=== PATIENT | female | born 1985 | race Caucasian/White ===

== ENCOUNTER → 2016-07-23 | Outpatient (CLI) | payer BC ==
[2016-07-23 12:25] LABS: Basophils % (A) 0 %; CH 30.2; CHCM 32.4; Eosinophils # (A) 0.1 k/uL (0-0.7); Eosinophils % (A) 1 %; HCT 43.1 % (34.0-46.0); HDW 2.22; HGB 13.6 gm/dL (11.4-16.0); Luc # (Auto) 0.13; Luc % (Auto) 1; Lymphocytes # (A) 2.7 k/uL (1.0-4.8); Lymphocytes % (A) 29 %; MCH 29.6 pg (25.0-35.0); MCHC 31.6 g/dL (31.0-37.0); MCV 93.8 fL (80.0-100.0); Mean Platelet Volume 8.3; Monocytes # (A) 0.5 k/uL (0-1.0); Monocytes % (A) 5 %; Neutrophils # (A) 5.9 k/uL (1.3-7.7); Neutrophils % (A) 64 %; RBC 4.59 m/uL (3.80-5.40); RDW 13.4 % (11.5-15.5); WBC 9.2 k/uL (3.8-10.6); WBC (Perox) 9.45
== END | disposition home or self-care (01) ==
LOC: LABPAT 12:07
PROVIDERS: ATTEND Obstetrics & Gynecology
DX: Z01.812 Encounter for preprocedural laboratory examination (principal)
CPT/HCPCS: 85025

== ENCOUNTER 2016-07-27 07:05 | Day surgery (SDC) | payer BC ==
[2016-07-25 14:23] VITALS: BMI 22.4
--- NOTE | 2016-07-27 06:57 | P.HPOB ---
History of Present Illness H&P Date: 07/27/16 Chief Complaint: retained IUD 30 year old presents for D&C hysteroscopy and removal of IUD. IUD was attempted to be removed in the office but was unsuccessful. Review of Systems All systems: negative Constitutional: Denies chills, Denies fever Eyes: denies blurred vision, denies pain Ears, nose, mouth and throat: Denies headache, Denies sore throat Cardiovascular: Denies chest pain, Denies shortness of breath Respiratory: Denies cough Gastrointestinal: Denies abdominal pain, Denies diarrhea, Denies nausea, Denies vomiting Genitourinary: Denies dysuria, Denies hematuria Musculoskeletal: Denies myalgias Integumentary: Denies pruritus, Denies rash Neurological: Denies numbness, Denies weakness Psychiatric: Denies anxiety, Denies depression Endocrine: Denies fatigue, Denies weight change Past Medical History Past Medical History: Thyroid Disorder Additional Past Medical History / Comment(s): MIGRAINE HEADACHE, HYPERTHYROIDISM , History of Any Multi-Drug Resistant Organisms: None Reported Past Surgical History: No Surgical Hx Reported Past Anesthesia/Blood Transfusion Reactions: No Reported Reaction Additional Past Anesthesia/Blood Transfusion Reaction / Comment(s): EPIDURAL WITH DELIVERIES WITH NO PROBLEMS Past Psychological History: No Psychological Hx Reported Smoking Status: Current every day smoker Past Alcohol Use History: Rare Additional Past Alcohol Use History / Comment(s): STARTED SMOKING AT AGE 19 SMOKES 1/2PPD Past Drug Use History: None Reported - Past Family History Mother Family Medical History: No Reported History Medications and Allergies Home Medications Medication Instructions Recorded Confirmed Type No Known Home Medications [No 07/25/16 07/25/16 History Known Home Medications] Allergies Allergy/AdvReac Type Severity Reaction Status Date / Time No Known Allergies Allergy Verified 07/25/16 13:52 Exam Osteopathic Statement: *. No significant issues noted on an osteopathic structural exam other than those noted in the History and Physical/Consult. HEart: RRR Lungs: CTAB Abdomen: soft, nontender Extremeties: neg blas's Assessment and Plan (1) IUD (intrauterine device) in place Status: Acute Plan: 1. D&C hysteroscopy and removal of IUD.
[~2016-07-27 07:05] MED LIST: DEXAMETHASONE SOD PHOSPHATE 10 MG/ML 1 ML VIAL IV ONE; HYDROmorphone 1 MG/ML 1 ML SYRINGE IVP PRN; LACTATED RINGERS 1,000 ML IV SCH; MIDAZOLAM 2 MG/2 ML VIAL IV PRN; ONDANSETRON 4 MG/2 ML VIAL IVP ONE; Pre Op ABX Message 1 EACH MISC MISCELLANE ONE; SCOPOLAMINE 1.5MG/72HR PATCH TRANSDERM ONE
[2016-07-27] MEDS ORDERED: LACTATED RINGERS 1,000 ML IV ONE (07:21)
[2016-07-27] MEDS ORDERED: LIDOCAINE 1% 20 ML VIAL (10MG/ML) FOR IV START INTRADERMA ONE (07:22)
[2016-07-27] MEDS ORDERED: PROPOFOL 10 MG/ML 20 ML VIAL IV ONE (07:55)
[2016-07-27] MEDS ORDERED: MIDAZOLAM 2 MG/2 ML VIAL ONE (07:55)
[2016-07-27] MEDS ORDERED: LIDOCAINE 1% INJ 10MG/ML (20 ML MDV) ONE (07:55)
[2016-07-27] MEDS ORDERED: fentaNYL (PF) 50 MCG/ML 2 ML AMP ONE (07:55)
[2016-07-27] MEDS ORDERED: KETOROLAC 30 MG/ML 1 ML VIAL ONE (07:55)
[2016-07-27 08:30] VITALS: TEMP 97.4
--- NOTE | 2016-07-27 08:34 | P.OP ---
Date of Procedure: 07/27/16 Preoperative Diagnosis: 1. Retained IUD Postoperative Diagnosis: 1. Retained IUD Procedure(s) Performed: D&C, hysteroscopy, removal of IUD Anesthesia: MAC Surgeon: Felipa Villela Estimated Blood Loss (ml): 5 Pathology: other (Endometrial curettings) Condition: stable Disposition: PACU Description of Procedure: Patient is taken the operating room where general anesthesia was obtained without difficulty. She is prepped and draped in normal sterile fashion dorsal lithotomy position, legs placed in candycane stirrups. Bladder drained of all urine. Weighted speculum placed in the vagina and the anterior lip the cervix was grasped with a single-tooth tenaculum. The uterus sounded to 9 cm. The Huggins dilators were used to dilate the cervix to allow the hysteroscope to pass. Hysteroscopy performed and IUD visualized immediately. The polyp forceps were used to remove the IUD. Sharp curet was gently used to obtain endometrial curettings. All instruments removed from the vagina. Patient tolerated procedure well, sponge and instrument counts were correct 2. And she was taken to recovery room in stable condition.
[2016-07-27 08:42] VITALS: RESP 16
[2016-07-27] MEDS ORDERED: IBUPROFEN 200 MG TAB PO ONE (09:21)
[2016-07-27 09:23] VITALS: BP 107/58; PULSE 56
== END 2016-07-27 09:56 | disposition home or self-care (01) ==
LOC: OR 07:05
PROVIDERS: ATTEND Obstetrics & Gynecology
DX: T83.89XA Other specified complication of genitourinary prosthetic devices, implants and grafts, initial encounter (principal); F17.200 Nicotine dependence, unspecified, uncomplicated
CPT/HCPCS: 58558; 58579; 81025; 88305; J2250; J1100; J2405; J2001; J3010; J1885; J2704

== ENCOUNTER 2022-03-15 11:10 | Outpatient (CLI) | payer BC, OTHER ==
[2022-03-15 11:58] LABS: Basophils # (A) 0.1 k/uL (0-0.2); Basophils % (A) 0 %; Eosinophils # (A) 0.1 k/uL (0-0.7); Eosinophils % (A) 1 %; HCT 32.1 % (34.0-46.0); HGB 9.9 gm/dL (11.4-16.0); Hypochromasia Marked; Lymphocytes # (A) 2.3 k/uL (1.0-4.8); Lymphocytes % (A) 18 %; MCH 26.9 pg (25.0-35.0); MCHC 30.8 g/dL (31.0-37.0); MCV 87.3 fL (80.0-100.0); Mean Platelet Volume 7.7; Monocytes # (A) 0.7 k/uL (0-1.0); Monocytes % (A) 5 %; Neutrophils # (A) 9.6 k/uL (1.3-7.7); Neutrophils % (A) 74 %; Platelet Count 548 k/uL (150-450); Poikilocytosis Slight; RBC 3.67 m/uL (3.80-5.40); RDW 14.6 % (11.5-15.5)
[2022-03-15 12:02] LABS: Amorphous Sediment,Urine Rare /hpf; Appearance,Urine Cloudy (Clear); Bacteria,Urine Occasional /hpf; Bilirubin,Urine Negative (Negative); Blood,Urine Negative (Negative); Color,Urine Light Yellow; Glucose,Urine (UA) Trace (Negative); Ketones,Urine Negative (Negative); Leukocyte Esterase,Urine Negative (Negative); Nitrite,Urine Negative (Negative); PH, Urine 7.5 (5.0-8.0); Protein,Urine Negative (Negative); RBC,Urine <1 /hpf (0-5); Specific Gravity,Urine 1.007 (1.001-1.035); Squamous Epithelial Cell,Urine 9 /hpf (0-4); Urobilinogen,Urine <2.0 mg/dL (<2.0); WBC,Urine 2 /hpf (0-5)
[2022-03-15 12:03] LABS: Creatinine,Urine Random 36.2 mg/dL; Protein/Creatinine Ratio,Urine 0.47
[2022-03-15 12:08] LABS: INR 0.9 (<1.2); Partial Thromboplastin Time 24.6 sec (22.0-30.0); Prothrombin Time 9.6 sec (9.0-12.0)
[2022-03-15 12:16] LABS: ALT 11 U/L (4-34); AST 20 U/L (14-36); African American GFR (CKD) >90 (>60 ml/min/1.73 sqM); Blood Urea Nitrogen 2 mg/dL (7-17); LDH 343 U/L (313-618); Non-African American GFR(CKD) >90 (>60 ml/min/1.73 sqM); Uric Acid 3.2 mg/dL (3.7-7.4)
[2022-03-15 14:02] VITALS: BP 145/81; PULSE 100; RESP 17; TEMP 97.9
--- NOTE | 2022-03-15 15:25 | P.MSEPDOC ---
Presenting Problems - Arrival Data Date of Arrival on Unit: 03/15/22 Time of Arrival on Unit: 13:10 Mode of Transport: Ambulatory - Complaint OB-Reason for Admission/Chief Complaint: PIH Comment: pt sent over from the office by Dr. Villela with written orders for PIH workup due to elevated bp's in the office Medical History - Gestational Age Gestational Age by JUAN (wks/days): 38 Weeks and 0 Days Review of Systems - Review of Systems Constitutional: No problems Breast: No problems ENT: No problems Cardiovascular: No problems Respiratory: No problems Gastrointestinal: No problems Genitourinary: No problems Musculoskeletal: No problems Neurological: No problems Skin: No problems Vital Signs - Temperature Temperature: 97.9 F - Pulse Right Brachial Pulse Rate: 100 Pulse Assessment Method: Automatic Cuff - Respirations Respiratory Rate: 17 Oxygen Delivery Method: Room Air - Blood Pressure Right Arm Blood Pressure: 145/81 Blood Pressure Mean: 102 Blood Pressure Source: Automatic Cuff Medical Screen Scoring - Assessment - Baby A Baseline FHR: 145 Heart Rate - NICHD Category: Category I (Normal) NST: Reactive Physician Notification - Physician Notified Physician Notified Date: 03/15/22 Physician Notified Time: 12:40 Physician: Felipa Villela Order Received: Yes - Notification Comment Comment: all PIH labs and reactive NST reported to Dr. Hameed, orders received to discharge pt home, she will schedule pt to be induced next Saturday Maternal Triage Index - Stat/Priority 1 Stat Priority 1: No - Urgent/Priority 2 Urgent Priority 2: No - Prompt/Priority 3 Prompt Priority 3: No - Non-Urgent/Priority 4 Non-Urgent Priority 4: No - Scheduled/Requesting Priority 5 Scheduled/Requesting Priority 5: Yes Criteria Met for Priority 5: pt sent over from the office by Dr. Villela with written orders for PIH workup due to elevated bp's in the office, pt 38 weeks ga Disposition - Disposition OB Disposition: Triage Discharge Date: 03/15/22 Discharge Time: 12:50 I agree with the RN Medical Screening Exam: Yes Case reviewed; plan agreed upon as documented in EMR&OBIX.: Yes Diagnosis: GESTATIONAL HTN W/O SIGNIFICANT PROTEINURIA, THIRD TRIMESTER
== END 2022-03-15 12:50 | disposition home or self-care (01) ==
LOC: FBPOP 11:10
PROVIDERS: ATTEND Obstetrics & Gynecology
DX: O13.3 Gestational [pregnancy-induced] hypertension without significant proteinuria, third trimester (principal); Z3A.38 38 weeks gestation of pregnancy
CPT/HCPCS: 36415; 59025; 81001; 82565; 82570; 83615; 84156; 84450; 84460; 84520; 84550; 85025; 85610; 85730

== ENCOUNTER 2022-03-23 06:06 | Inpatient (IN) | payer BC, OTHER ==
[2022-03-23] MEDS ORDERED: TERBUTALINE 1 MG/ML VIAL SQ PRN (06:12)
[2022-03-23] MEDS ORDERED: METHYLERGONOVINE 0.2 MG/ML 1 ML AMP IM PRN (06:12)
[2022-03-23] MEDS ORDERED: LIDOCAINE 0.5% (PF) 5 MG/ML (50 ML SDV) SQ PRN (06:12)
[2022-03-23] MEDS ORDERED: OXYTOCIN 10 UNIT/ML 1 ML VIAL IM PRN (06:12)
[2022-03-23] MEDS ORDERED: CARBOPROST TROMETHAMINE 250 MCG/ML 1 ML AMP IM PRN (06:12)
[2022-03-23] MEDS: LACTATED RINGERS 1,000 ML IV SCH ×2 (06:44→13:12)
[2022-03-23] MEDS ORDERED: OXYTOCIN 30 UNITS/500 ML NS 30 UNIT in SALINE 1 500ML.BAG IV SCH ×2 (06:45→22:45)
[2022-03-23 07:17] LABS: Basophils % (A) 0 %; Eosinophils # (A) 0.2 k/uL (0-0.7); Eosinophils % (A) 1 %; HCT 33.8 % (34.0-46.0); HGB 10.7 gm/dL (11.4-16.0); Hypochromasia Marked; Lymphocytes # (A) 3.4 k/uL (1.0-4.8); Lymphocytes % (A) 22 %; MCH 27.4 pg (25.0-35.0); MCHC 31.6 g/dL (31.0-37.0); MCV 86.9 fL (80.0-100.0); Mean Platelet Volume 7.7; Monocytes # (A) 0.7 k/uL (0-1.0); Monocytes % (A) 5 %; Neutrophils # (A) 10.7 k/uL (1.3-7.7); Neutrophils % (A) 70 %; Platelet Count 563 k/uL (150-450); Poikilocytosis Slight; RBC 3.89 m/uL (3.80-5.40); RDW 15.1 % (11.5-15.5); WBC 15.3 k/uL (3.8-10.6)
--- NOTE | 2022-03-23 07:52 | P.HPOB ---
History of Present Illness H&P Date: 03/23/22 Chief Complaint: induction of labor 36-year-old presents at 39 weeks and 1 day for induction of labor. Her cervix is 2-3 cm dilated, 60% effaced, and -2 station. She is dinora irregularly. heart tones are 135 with moderate variability and reactive. Review of Systems All systems: negative Constitutional: Denies chills, Denies fever Eyes: denies blurred vision, denies pain Ears, nose, mouth and throat: Denies headache, Denies sore throat Cardiovascular: Denies chest pain, Denies shortness of breath Respiratory: Denies cough Gastrointestinal: Denies abdominal pain, Denies diarrhea, Denies nausea, Denies vomiting Genitourinary: Denies dysuria, Denies hematuria Musculoskeletal: Denies myalgias Integumentary: Denies pruritus, Denies rash Neurological: Denies numbness, Denies weakness Psychiatric: Denies anxiety, Denies depression Endocrine: Denies fatigue, Denies weight change Past Medical History Past Medical History: GERD/Reflux, Thyroid Disorder History of Any Multi-Drug Resistant Organisms: None Reported Past Anesthesia/Blood Transfusion Reactions: No Reported Reaction Past Psychological History: No Psychological Hx Reported Smoking Status: Current every day smoker - Past Family History Mother Family Medical History: No Reported History Medications and Allergies Home Medications Medication Instructions Recorded Confirmed Type Omeprazole 40 mg PO DAILY 03/15/22 03/23/22 History Vit No.179/Iron/Folic 1 each PO DAILY 03/15/22 03/23/22 History [ Tablet] Allergies Allergy/AdvReac Type Severity Reaction Status Date / Time No Known Allergies Allergy Verified 03/23/22 06:12 Exam Osteopathic Statement: *. No significant issues noted on an osteopathic structural exam other than those noted in the History and Physical/Consult. Vital Signs Temp Pulse Resp BP Pulse Ox 03/23/22 06:17 98 F 118 H 16 136/88 98 Intake and Output 03/22/22 03/23/22 03/23/22 22:59 06:59 14:59 Other: Weight 83.007 kg Heart: Regular rate and rhythm Lungs: Clear to auscultation bilaterally Abdomen: Soft, nontender Extremities: Negative Homans sign Results Result Diagrams: 03/23/22 06:37 Abnormal Lab Results - Last 24 Hours (Table) 03/23/22 Range/Units 06:37 WBC 15.3 H (3.8-10.6) k/uL Hgb 10.7 L (11.4-16.0) gm/dL Hct 33.8 L (34.0-46.0) % Plt Count 563 H (150-450) k/uL Neutrophils # 10.7 H (1.3-7.7) k/uL Assessment and Plan (1) Elective induction of labor planned Current Visit: Yes Status: Acute Code(s): SSS2423 - SNOMED Code(s): 820766507 Plan: 1. Induction of labor with amniotomy and Pitocin 2. Anticipate normal vaginal delivery
[2022-03-23] MEDS ORDERED: ROPIVACAINE 5MG/ML 20ML VIAL ONE (19:24)
[2022-03-23] MEDS ORDERED: SODIUM CHLORIDE 0.9% 100 ML BAG ONE (19:24)
[2022-03-23] MEDS ORDERED: fentaNYL (PF) 50 MCG/ML 5 ML AMP ONE (19:24)
[2022-03-23] MEDS ORDERED: diphenhydrAMINE 50 MG/ML 1 ML VIAL IVP PRN ×2 (22:43)
[2022-03-23] MEDS ORDERED: ZOLPIDEM 5 MG TAB PO PRN (22:43)
[2022-03-23] MEDS ORDERED: LANOLIN CREAM 5 GM TUBE TOPICAL PRN (22:43)
[2022-03-23] MEDS ORDERED: ACETAMINOPHEN TAB 325 MG TAB PO PRN (22:43)
[2022-03-23] MEDS ORDERED: HYDROCORTISONE 2.5% RECTAL CREAM 30 GM TUBE RECTAL PRN (22:43)
[2022-03-23] MEDS ORDERED: diphenhydrAMINE 50 MG CAP PO PRN (22:43)
[2022-03-23] MEDS ORDERED: diphenhydrAMINE 25 MG CAP PO PRN (22:43)
[2022-03-23] MEDS ORDERED: BENZOCAINE/MENTHOL SPRAY 1 GM/SPRAY AEROSOL TOPICAL PRN (22:43)
[2022-03-23] MEDS ORDERED: SIMETHICONE 80 MG CHEWABLE PO PRN (22:43)
[2022-03-23] MEDS: IBUPROFEN 600 MG TAB PO PRN (23:26)
[2022-03-24 00:04] VITALS: RESP 16
[2022-03-24] MEDS: LACTATED RINGERS 1,000 ML IV SCH (00:43)
[2022-03-24] MEDS: IBUPROFEN 600 MG TAB PO PRN ×3 (05:33→19:43)
[2022-03-24] MEDS: SENNOSIDES-DOCUSATE SODIUM 1 EACH TAB PO SCH ×3 (08:05→19:44)
[2022-03-24 08:07] LABS: Basophils # (A) 0.1 k/uL (0-0.2); Basophils % (A) 0 %; Eosinophils % (A) 0 %; HCT 30.8 % (34.0-46.0); HGB 9.5 gm/dL (11.4-16.0); Hypochromasia Marked; Lymphocytes # (A) 2.2 k/uL (1.0-4.8); Lymphocytes % (A) 7 %; MCH 26.7 pg (25.0-35.0); MCHC 30.8 g/dL (31.0-37.0); MCV 86.7 fL (80.0-100.0); Monocytes # (A) 1.4 k/uL (0-1.0); Monocytes % (A) 5 %; Neutrophils # (A) 26.3 k/uL (1.3-7.7); Neutrophils % (A) 86 %; Platelet Count 515 k/uL (150-450); Poikilocytosis Slight; RBC 3.56 m/uL (3.80-5.40); RDW 15.3 % (11.5-15.5); WBC 30.4 k/uL (3.8-10.6)
--- NOTE | 2022-03-24 10:22 | P.DS ---
Providers Date of admission: 03/23/22 06:06 Expected date of discharge: 03/24/22 Attending physician: Felipa Villela Primary care physician: Stated None - Discharge Diagnosis(es) (1) Elective induction of labor planned Current Visit: Yes Status: Resolved (2) Normal vaginal delivery Current Visit: Yes Status: Acute Hospital Course: Patient presented for induction of labor. She underwent a normal vaginal delivery. course was uncomplicated. She denies nausea, vomiting, ch est pain, shortness of breath or any calf pain. Patient will be discharged home day #1 in stable condition to follow-up with me in 6 weeks. Plan - Discharge Summary New Discharge Prescriptions: New Ibuprofen [Motrin] 600 mg PO Q6HR PRN #30 tab PRN Reason: Mild Pain (Scale 1 To 3) No Action Omeprazole 40 mg PO DAILY Vit No.179/Iron/Folic [ Tablet] 1 each PO DAILY Discharge Medication List Omeprazole 40 mg PO DAILY 03/15/22 [History] Vit No.179/Iron/Folic [ Tablet] 1 each PO DAILY 03/15/22 [History] Ibuprofen [Motrin] 600 mg PO Q6HR PRN #30 tab 03/24/22 [Rx] Follow up Appointment(s)/Referral(s): Felipa Villela DO [Doctor of Osteopathic Medicine] - 05/07/22 3:45 pm Discharge Disposition: HOME SELF-CARE
--- NOTE | 2022-03-24 10:35 | P.PROBDLV ---
Vaginal Delivery Note - . Vaginal Delivery Note: 36-year-old presents at 39 weeks and 1 day for induction of labor. Her cervix is 2-3 cm dilated, 60% effaced, and -2 station. She is dinora irregularly. heart tones are 135 with moderate variability and reactive. Pitocin was started and amniotomy performed at 7:21 AM, clear fluid noted. She progressed slowly throughout the day and when she was about 8 cm dilated at 5 PM she felt a strong urge to push and did try a few times. She was uncomfortable and did get an epidural so the baby could labor down. Her cervix was completely dilated at 2121. She pushed, delivered a viable female infant over intact perineum under epidural anesthesia at 2235. Head delivered OA, nuchal cord 2 easily reduced, anterior shoulder delivered gentle downward guidance, followed by posterior shoulder and rest of body. Nose and mouth bulb suctioned, cord clamped and cut, placed on mother's abdomen. Apgars 9, 9, weight 9 lbs. 5 oz. Placenta delivered spontaneously, intact with three-vessel cord at 2235. Vagina, cervix, perineum inspected. No lacerations noted. Estimated blood loss 100 mL. Mother and baby in stable condition.
[2022-03-24 23:12] VITALS: BP 130/81; PULSE 112; TEMP 98
== END 2022-03-24 23:15 | disposition home or self-care (01) | DRG 807 ==
LOC: 4FBP 06:06
PROVIDERS: ADMIT Obstetrics & Gynecology; ATTEND Obstetrics & Gynecology
PROC: 10E0XZZ Delivery of Products of Conception, External Approach (ICD-10-PCS; principal; 2022-03-23)
PROC: 10907ZC Drainage of Amniotic Fluid, Therapeutic from Products of Conception, Via Natural or Artificial Opening (ICD-10-PCS; 2022-03-23)
PROC: 3E033VJ Introduction of Other Hormone into Peripheral Vein, Percutaneous Approach (ICD-10-PCS; 2022-03-23)
PROC: 4A0HXCZ Measurement of Products of Conception, Cardiac Rate, External Approach (ICD-10-PCS; 2022-03-23)
DX: O69.81X0 Labor and delivery complicated by cord around neck, without compression, not applicable or unspecified (principal); Z37.0 Single live birth; O99.334 Smoking (tobacco) complicating childbirth; F17.210 Nicotine dependence, cigarettes, uncomplicated; K21.9 Gastro-esophageal reflux disease without esophagitis; O99.62 Diseases of the digestive system complicating childbirth; E07.9 Disorder of thyroid, unspecified; O99.284 Endocrine, nutritional and metabolic diseases complicating childbirth; Z3A.39 39 weeks gestation of pregnancy
CPT/HCPCS: 85025; 86850; 86900; 86901

== ENCOUNTER → 2022-05-28 | Outpatient (CLI) | payer OTHER ==
--- NOTE | 2022-05-28 16:26 | US ---
EXAMINATION TYPE: US transvaginal DATE OF EXAM: 05/28/2022 COMPARISON: Pelvic ultrasound 05/29/2016 CLINICAL HISTORY: N93.8 OTHER SPECIFIED ABNORMAL UTERINE AND VAGINAL. 8 weeks , bleeding wa s heavy but just stopped, back pain, no fever TECHNIQUE: TA. Transabdominal sonographic images of the pelvis were acquired Date of LMP: 12 months ago EXAM MEASUREMENTS: Uterus: 9.5 x 4.2 x 4.1 cm Endometrial Stripe: 1.6 cm Right Ovary: 2.3 x 1.6 x 1.6 cm Left Ovary: 1.3 x 1.7 x 1.9 cm 1. Uterus: Anteverted wnl 2. Endometrium: heterogeneous ranging from 1.4-1.6cm in thickness with echogenic foci within. No inc reased vascularity. 3. Right Ovary: wnl 4. Left Ovary: wnl 5. Bilateral Adnexa: wnl 6. Posterior cul-de-sac: wnl IMPRESSION: Prominent endometrium measuring up to 1.6 cm in thickness. No increased vascularity to definitively s uggest retained products of conception. Nonspecific echogenic foci demonstrated within the endometriu m. Findings may relate to endometrial hyperplasia versus normal postmenopausal endometrium versus oth er etiologies. Follow-up ultrasound in 6-12 weeks is recommended with correlation with beta hCG level s.
== END | disposition home or self-care (01) ==
LOC: RADUSWWP 15:45
PROVIDERS: ATTEND Obstetrics & Gynecology
DX: N93.8 Other specified abnormal uterine and vaginal bleeding (principal)
CPT/HCPCS: 76856

== ENCOUNTER 2023-09-11 14:10 | Emergency (ER) | payer OTHER ==
[2023-09-11 14:19] VITALS: RESP 18; TEMP 97.9
--- NOTE | 2023-09-11 14:21 | ED ---
Female Urogenital HPI - General Chief complaint: Vaginal Bleeding Stated complaint: 10 wks preg- vag bleeding Time Seen by Provider: 09/11/23 14:13 Source: patient, RN notes reviewed Mode of arrival: ambulatory Limitations: no limitations - History of Present Illness Initial comments: This is a 37-year-old female who presents to the emergency department for vaginal bleeding in . Patient is and approximately 10 weeks . States that yesterday she had light spotting and today she started to develop more persistent bleeding. She has minor pain in her back but denies any abdominal pain. Denies any nausea or vomiting. She used to follow with Dr. Villela, however because that office is closing she is having trouble getting an appointment. Denies any history of complications in prior pregnancies. MD Complaint: vaginal bleeding - Related Data Home Medications Medication Instructions Recorded Confirmed Omeprazole 40 mg PO DAILY 03/15/22 03/23/22 Vit No.179/Iron/Folic 1 each PO DAILY 03/15/22 03/23/22 [ Tablet] Previous Rx's Medication Instructions Recorded Ibuprofen [Motrin] 600 mg PO Q6HR PRN #30 tab 03/24/22 Allergies Allergy/AdvReac Type Severity Reaction Status Date / Time No Known Allergies Allergy Verified 09/11/23 14:13 Review of Systems ROS Statement: Those systems with pertinent positive or pertinent negative responses have been documented in the HPI. ROS Other: All systems not noted in ROS Statement are negative. Past Medical History Past Medical History: GERD/Reflux, Thyroid Disorder History of Any Multi-Drug Resistant Organisms: None Reported Past Surgical History: No Surgical Hx Reported Past Anesthesia/Blood Transfusion Reactions: No Reported Reaction Past Psychological History: No Psychological Hx Reported Smoking Status: Current every day smoker Past Alcohol Use History: None Reported Past Drug Use History: None Reported - Past Family History Mother Family Medical History: No Reported History General Exam Limitations: no limitations General appearance: alert, in no apparent distress Head exam: Present: atraumatic, normocephalic, normal inspection Respiratory exam: Present: normal lung sounds bilaterally. Absent: respiratory distress, wheezes, rales, rhonchi, stridor Cardiovascular Exam: Present: regular rate, normal rhythm, normal heart sounds. Absent: systolic murmur, diastolic murmur, rubs, gallop, clicks Neurological exam: Present: alert, oriented X3, CN II-XII intact Psychiatric exam: Present: normal affect, normal mood Skin exam: Present: warm, dry, intact, normal color. Absent: rash Course Vital Signs 09/11/23 09/11/23 14:11 17:38 Temperature 97.9 F Pulse Rate 99 81 Respiratory 18 18 Rate Blood Pressure 145/85 120/80 O2 Sat by Pulse 99 99 Oximetry Medical Decision Making - Medical Decision Making This is a 37 year old female who presents to the emergency department for vaginal bleeding in . Was pt. sent in by a medical professional or institution? @ -No Did you speak to anyone other than the patient for history? @ -No Did you review nursing and triage notes? @ -Yes, and I agree, it is accurate with regards to the patient's symptoms. Were old charts reviewed? @ -No Differential Diagnosis? @ -Differential Vaginal Bleeding: Spontaneous , threatened , molar , ectopic , incompetent cervix, placenta previa, uterine rupture, dysfunctional uterine bleeding, hemorrhage, uterine fibroids, malignancy, coagulopathy, PID, cervicitis, adenomyosis, vaginal trauma, this is not meant to be an all- inclusive list. EKG interpreted by me (3pts min.)? @ -Not obtained X-rays interpreted by me (1pt min.)? @ -Not obtained CT interpreted by me (1pt min.)? @ -Not obtained U/S interpreted by me (1pt. min.)? @ - US obtained. My interpretation identifies a gestational sac. What testing was considered but not performed? (CT, X-rays, U/S, labs)? Why? @ -None What meds were considered but not given? Why? @ -None Did you discuss the management of the patient with other professionals? @ -No Did you reconcile home meds? @ -No Was smoking cessation discussed for >3mins.? @ -No Was critical care preformed (if so, how long)? @ -No Were there social determinants of health that impacted care today? How? (Homelessness, low income, unemployed, alcoholism, drug addiction, tra nsportation, low edu. Level, literacy, decrease access to med. care, [facility], rehab)? @ -No Was there de-escalation of care discussed even if they declined? (Discuss DNR or withdrawal of care, Hospice)? @ -No What co-morbidities impacted this encounter? (DM, HTN, Smoking, COPD, CAD, Cancer, CVA, Hep., AIDS, mental health diagnosis, sleep apnea, morbid obesity)? @ - Was patient admitted / discharged? @ -Discharged. Lab work obtained and found to be unremarkable. HCG is 7922.1. Urinalysis is negative for signs of infection. Blood type is O+ and no RhoGAM is indicated. US obtained demonstrating an early gestational sac estimated at 5 weeks 5 days. Yolk sac is not identified. Blighted ovum is within the differential, as well as possible early . Subchorionic hematoma is also evident, which is likely the cause of the bleeding. Given the indeterminate US, she will need to have her hCG repeated in 48 hours. Lab slip provided to have this done. Also advised continuing to try and become established with an PHYSICIAN/ALLERGY/IMMUNOLOGY for ongoing obstetrics care. Patient discharged home in stable condition. Undiagnosed new problem with uncertain prognosis? @ -None Drug Therapy requiring intensive monitoring for toxicity (Heparin, Nitro, Insulin, Cardizem)? @ -None Were any procedures done? @ -None Diagnosis/symptom? @ -Vaginal bleeding in Acute, or Chronic, or Acute on Chronic? @ -Acute Uncomplicated (without systemic symptoms) or Complicated (systemic symptoms)? @ -Uncomplicated Side effects of treatment? @ -None Exacerbation, Progression, or Severe Exacerbation] @ -Not applicable Poses a threat to life or bodily function? @ -No Return precautions reviewed in depth, the patient is instructed to return to the emergency department with any new, worsening, or concerning symptoms. Patient verbalized understanding. This case was discussed in detail with the attending ED physician, Dr. Pink. Presentation, findings, and treatment plan discussed in detail as well. - Lab Data Result diagrams: 09/11/23 14:56 09/11/23 14:56 Lab Results 09/11/23 09/11/23 09/11/23 Range/Units 14:56 14:56 14:56 WBC 9.0 (3.8-10.6) k/uL RBC 4.59 (3.80-5.40) m/uL Hgb 13.4 (11.4-16.0) gm/dL Hct 41.4 (34.0-46.0) % MCV 90.2 (80.0-100.0) fL MCH 29.2 (25.0-35.0) pg MCHC 32.3 (31.0-37.0) g/dL RDW 13.7 (11.5-15.5) % Plt Count 371 (150-450) k/uL MPV 7.6 Neutrophils % 70 % Lymphocytes % 24 % Monocytes % 3 % Eosinophils % 1 % Basophils % 0 % Neutrophils # 6.3 (1.3-7.7) k/uL Lymphocytes # 2.2 (1.0-4.8) k/uL Monocytes # 0.3 (0-1.0) k/uL Eosinophils # 0.1 (0-0.7) k/uL Basophils # 0.0 (0-0.2) k/uL Sodium 139 (137-145) mmol/L Potassium 3.6 (3.5-5.1) mmol/L Chloride 106 (98-107) mmol/L Carbon Dioxide 25 (22-30) mmol/L Anion Gap 8 mmol/L BUN 8 (7-17) mg/dL Creatinine 0.53 (0.52-1.04) mg/dL Est GFR (CKD-EPI)AfAm >90 (>60 ml/min/1.73 sqM) Est GFR (CKD-EPI)NonAf >90 (>60 ml/min/1.73 sqM) Glucose 120 H (74-99) mg/dL Calcium 9.5 (8.4-10.2) mg/dL Total Bilirubin 0.4 (0.2-1.3) mg/dL AST 19 (14-36) U/L ALT 15 (4-34) U/L Alkaline Phosphatase 87 (38-126) U/L Total Protein 7.2 (6.3-8.2) g/dL Albumin 4.5 (3.5-5.0) g/dL HCG, Quant 7922.1 mIU/mL Urine Color Light Yellow Urine Appearance Clear (Clear) Urine pH 7.0 (5.0-8.0) Ur Specific [place] 1.005 (1.001-1.035) Urine Protein Trace H (Negative) Urine Glucose (UA) Negative (Negative) Urine Ketones Negative (Negative) Urine Blood Large H (Negative) Urine Nitrite Negative (Negative) Urine Bilirubin Negative (Negative) Urine Urobilinogen <2.0 (<2.0) mg/dL Ur Leukocyte Esterase Negative (Negative) Urine RBC 1 (0-5) /hpf Urine WBC 3 (0-5) /hpf Ur Squamous Epith Cells 2 (0-4) /hpf Urine Bacteria Rare H (None) /hpf Urine Mucus Rare H (None) /hpf Urine Yeast (Budding) Occasional H (None) /hpf Blood Type Blood Type Recheck Bld Type Recheck Status 09/11/23 Range/Units 14:56 WBC (3.8-10.6) k/uL RBC (3.80-5.40) m/uL Hgb (11.4-16.0) gm/dL Hct (34.0-46.0) % MCV (80.0-100.0) fL MCH (25.0-35.0) pg MCHC (31.0-37.0) g/dL RDW (11.5-15.5) % Plt Count (150-450) k/uL MPV Neutrophils % % Lymphocytes % % Monocytes % % Eosinophils % % Basophils % % Neutrophils # (1.3-7.7) k/uL Lymphocytes # (1.0-4.8) k/uL Monocytes # (0-1.0) k/uL Eosinophils # (0-0.7) k/uL Basophils # (0-0.2) k/uL Sodium (137-145) mmol/L Potassium (3.5-5.1) mmol/L Chloride (98-107) mmol/L Carbon Dioxide (22-30) mmol/L Anion Gap mmol/L BUN (7-17) mg/dL Creatinine (0.52-1.04) mg/dL Est GFR (CKD-EPI)AfAm (>60 ml/min/1.73 sqM) Est GFR (CKD-EPI)NonAf (>60 ml/min/1.73 sqM) Glucose (74-99) mg/dL Calcium (8.4-10.2) mg/dL Total Bilirubin (0.2-1.3) mg/dL AST (14-36) U/L ALT (4-34) U/L Alkaline Phosphatase (38-126) U/L Total Protein (6.3-8.2) g/dL Albumin (3.5-5.0) g/dL HCG, Quant mIU/mL Urine Color Urine Appearance (Clear) Urine pH (5.0-8.0) Ur Specific [place] (1.001-1.035) Urine Protein (Negative) Urine Glucose (UA) (Negative) Urine Ketones (Negative) Urine Blood (Negative) Urine Nitrite (Negative) Urine Bilirubin (Negative) Urine Urobilinogen (<2.0) mg/dL Ur Leukocyte Esterase (Negative) Urine RBC (0-5) /hpf Urine WBC (0-5) /hpf Ur Squamous Epith Cells (0-4) /hpf Urine Bacteria (None) /hpf Urine Mucus (None) /hpf Urine Yeast (Budding) (None) /hpf Blood Type O Positive Blood Type Recheck O Pos Bld Type Recheck Status [facility] ONLY - Radiology Data Radiology results: report reviewed, image reviewed Disposition Clinical Impression: Vaginal bleeding during Disposition: HOME SELF-CARE Additional Instructions: Return to the emergency department with any new, worsening, or concerning symptoms. Take the lab slip to have your blood work repeated in 48 hours, this Saturday. The ultrasound was inconclusive. A gestational sac was present, however they did not yet see a yolk sac. It may have been too early to see this. You may also have something called a blighted ovum. Continue trying to become establis hed with an PHYSICIAN/ALLERGY/IMMUNOLOGY for ongoing obstetrics care. You can also see if the [facility] clinic can repeat an ultrasound. Is patient prescribed a controlled substance at d/c from ED?: No Referrals: None,Stated [Primary Care Provider] - 1-2 days Felipa Villela DO [Doctor of Osteopathic Medicine] - 1-2 days Time of Disposition: 16:32
[2023-09-11 15:13] LABS: Basophils % (A) 0 %; Eosinophils # (A) 0.1 k/uL (0-0.7); Eosinophils % (A) 1 %; HCT 41.4 % (34.0-46.0); HGB 13.4 gm/dL (11.4-16.0); Lymphocytes # (A) 2.2 k/uL (1.0-4.8); Lymphocytes % (A) 24 %; MCH 29.2 pg (25.0-35.0); MCHC 32.3 g/dL (31.0-37.0); MCV 90.2 fL (80.0-100.0); Mean Platelet Volume 7.6; Monocytes # (A) 0.3 k/uL (0-1.0); Monocytes % (A) 3 %; Neutrophils # (A) 6.3 k/uL (1.3-7.7); Neutrophils % (A) 70 %; Platelet Count 371 k/uL (150-450); RBC 4.59 m/uL (3.80-5.40); RDW 13.7 % (11.5-15.5)
[2023-09-11 15:28] LABS: ALT 15 U/L (4-34); AST 19 U/L (14-36); African American GFR (CKD) >90 (>60 ml/min/1.73 sqM); Albumin 4.5 g/dL (3.5-5.0); Alkaline Phosphatase 87 U/L (38-126); Anion Gap 8 mmol/L; Blood Urea Nitrogen 8 mg/dL (7-17); Calcium 9.5 mg/dL (8.4-10.2); Carbon Dioxide 25 mmol/L (22-30); Chloride 106 mmol/L (98-107); Glucose 120 mg/dL (74-99); Non-African American GFR(CKD) >90 (>60 ml/min/1.73 sqM); Potassium 3.6 mmol/L (3.5-5.1); Sodium 139 mmol/L (137-145); Total Bilirubin 0.4 mg/dL (0.2-1.3); Total Protein 7.2 g/dL (6.3-8.2)
[2023-09-11 15:34] LABS: Appearance,Urine Clear (Clear); Bacteria,Urine Rare /hpf; Bilirubin,Urine Negative (Negative); Blood,Urine Large (Negative); Budding Yeast,Urine Occasional /hpf; Color,Urine Light Yellow; Glucose,Urine (UA) Negative (Negative); Ketones,Urine Negative (Negative); Leukocyte Esterase,Urine Negative (Negative); Mucus,Urine Rare /hpf; Nitrite,Urine Negative (Negative); Protein,Urine Trace (Negative); RBC,Urine 1 /hpf (0-5); Specific Gravity,Urine 1.005 (1.001-1.035); Squamous Epithelial Cell,Urine 2 /hpf (0-4); Urobilinogen,Urine <2.0 mg/dL (<2.0); WBC,Urine 3 /hpf (0-5)
[2023-09-11 15:43] LABS: HCG,Quantitative Serum 7922.1 mIU/mL
--- NOTE | 2023-09-11 15:43 | US ---
EXAMINATION TYPE: Transabdominal DATE OF EXAM: 09/11/2023 3:10 PM COMPARISON: NONE CLINICAL INDICATION: Female, 37 years old with history of Vaginal bleeding in ; Spotting sta rted yesterday, heavier today EXAM PERFORMED: Transabdominal (TA) EXAM MEASUREMENTS: GESTATIONAL AGE / DATING Physician Established: Not yet established ( weeks/ days) EDC: Dates by LMP: 06/05/2023 (14 weeks/0 days) EDC: 03/11/2024 Dates by First Scan: No previous this is first scan ( weeks/ days) EDC: Dates by Current Scan for: (5 weeks/5 days) EDC: 05/08/2024 MATERNAL ANATOMY Uterus: 10.1 x 5.2 x 6.6 cm Right Ovary: 3.6 x 3.0 x 3.4 cm Left Ovary: 3.1 x 1.5 x 1.3 cm Post CDS / Adnexa: WNL Presence of free fluid: No Presence of corpus luteal cyst: No Presence of subchorionic bleed: Multiple, largest = 1.6 x 1.4 x 1.1 GESTATION / SURVEY CRL: Not seen ( weeks/ days) MSD: 1.48 (5 weeks/5 days) Yolk Sac (normal less than 6mm): Not seen Heart Rate: NA bpm Rhythm: NA IUP: ? Blighted Ovum Nuchal Translucency 10-14wks (normal less than 3mm): NA Age Appropriate Anatomy Cord Insertion: NA Limbs: NA Calvarium: NA Date of LMP: 06/05/2023 Beta HcG (if available): Not available at this time IMPRESSION: 1. Early gestational sac estimated at 5 weeks 5 days gestation. The crown-rump length is not identifi ed. Yolk sac is not identified. Blighted ovary is within the differential. Early , less like ly, remains within the differential. Follow-up and correlation with beta hCG is recommended.
[2023-09-11 17:55] VITALS: BP 120/80; PULSE 81
== END 2023-09-11 17:40 | disposition home or self-care (01) ==
LOC: EC 14:10
DX: O46.91 Antepartum hemorrhage, unspecified, first trimester (principal); O99.611 Diseases of the digestive system complicating pregnancy, first trimester; K21.9 Gastro-esophageal reflux disease without esophagitis; O99.331 Smoking (tobacco) complicating pregnancy, first trimester; F17.200 Nicotine dependence, unspecified, uncomplicated; Z3A.10 10 weeks gestation of pregnancy
CPT/HCPCS: 36415; 76801; 80053; 81001; 84702; 85025; 86900; 86901; 99284

== ENCOUNTER 2023-09-13 00:04 | Emergency (ER) | payer OTHER ==
--- NOTE | 2023-09-13 00:26 | ED ---
General Adult HPI - General Stated complaint: transfer Time Seen by Provider: 09/13/23 00:25 - History of Present Illness Initial comments: 37 year old female presenting to the ED with a CC of vaginal bleeding and abdominal pain. Was seen here yesterday and had an US performed showing early gestational sac at 5 weeks 5 days gestation. Yolk sac not identified. States today went to [facility] because of increasing vaginal bleeding and abdominal pain. Transferred here for further evaluation. Follows with Dr. Villela. No chest pain shortness of breath. No fever or chills. No other complaints at this time. - Related Data Home Medications Medication Instructions Recorded Confirmed Omeprazole 40 mg PO DAILY 03/15/22 03/23/22 Vit No.179/Iron/Folic 1 each PO DAILY 03/15/22 03/23/22 [ Tablet] Previous Rx's Medication Instructions Recorded Ibuprofen [Motrin] 600 mg PO Q6HR PRN #30 tab 03/24/22 Allergies Allergy/AdvReac Type Severity Reaction Status Date / Time No Known Allergies Allergy Verified 09/13/23 00:26 Review of Systems ROS Statement: Those systems with pertinent positive or pertinent negative responses have been documented in the HPI. ROS Other: All systems not noted in ROS Statement are negative. Past Medical History Past Medical History: GERD/Reflux, Thyroid Disorder History of Any Multi-Drug Resistant Organisms: None Reported Past Surgical History: No Surgical Hx Reported Past Anesthesia/Blood Transfusion Reactions: No Reported Reaction Past Psychological History: No Psychological Hx Reported Smoking Status: Current every day smoker Past Alcohol Use History: None Reported Past Drug Use History: None Reported - Past Family History Mother Family Medical History: No Reported History General Exam General appearance: alert, in no apparent distress Eye exam: Present: normal appearance Neck exam: Present: normal inspection Respiratory exam: Present: normal lung sounds bilaterally Cardiovascular Exam: Present: regular rate, normal rhythm GI/Abdominal exam: Present: soft (Diffuse abdominal TTP. ), other (Diffuse abdominal tenderness to palpation.) External exam: Present: other (Exam chaperoned by Marquise CORNELIUS. Cervical os obscured by blood. There does appear to be some minimal active bleeding. Minimal blood in the vaginal vault.) Extremities exam: Present: normal inspection Neurological exam: Present: alert, oriented X3 Skin exam: Present: warm, dry Course Vital Signs 03/01/24 03/01/24 00:26 01:52 Temperature 98.3 F Pulse Rate 104 H 93 Respiratory 16 15 Rate Blood Pressure 102/72 115/69 O2 Sat by Pulse 100 96 Oximetry Medical Decision Making - Medical Decision Making Was pt. sent in by a medical professional or institution (, [facility], BUREAU CHIEF, urgent care, hospital, or half-way...) When possible be specific @ -[facility] Did you speak to anyone other than the patient for history (EMS, parent, family, police, friend...)? What history was obtained from this source @ -No Did you review nursing and triage notes (agree or disagree)? Why? @ -I reviewed and agree with nursing and triage notes Were old charts reviewed (outside hosp., previous admission, EMS record, old EKG, old radiological studies, urgent care reports/EKG's, half-way records)? Report findings @ -Yes, please see HPI and MDM. Differential Diagnosis (chest pain, altered mental status, abdominal pain women, abdominal pain men, vaginal bleeding, weakness, fever, dyspnea, syncope, headache, dizziness, GI bleed, back pain, seizure, CVA, palpatations, mental health, musculoskeletal)? @ -Differential Vaginal Bleeding: Spontaneous , threatened , molar , ectopic , bloody show, incompetent cervix, abruptioplacenta, placenta previa, uterine rupture, dysfunctional uterine bleeding, hemorrhage, uterine fibroids, this is not meant to be an all-inclusive list. EKG interpreted by me (3pts min.). @ -None X-rays interpreted by me (1pt min.). @ -None done CT interpreted by me (1pt min.). @ -None done U/S interpreted by me (1pt. min.). @ -None done What testing was considered but not performed or refused? (CT, X-rays, U/S, labs )? Why? @ -None What meds were considered but not given or refused? Why? @ -None Did you discuss the management of the patient with other professionals (professionals i.e. , [facility], BUREAU CHIEF, lab, RT, psych nurse, social work therapist, increment manager, teacher, armed custom protection officer, outpatient case manager)? Give summary @ -Case discussed with Dr. Villela who advises close follow-up in her office tomorrow. Was smoking cessation discussed for >3mins.? @ -No Was critical care preformed (if so, how long)? @ -No Were there social determinants of health that impacted care today? How? (Homelessness, low income, unemployed, alcoholism, drug addiction, transportation, low edu. Level, literacy, decrease access to med. care, fdc, rehab)? @ -No Was there de-escalation of care discussed even if they declined (Discuss DNR or withdrawal of care, Hospice)? DNR status @ -No What co-morbidities impacted this encounter? (DM, HTN, Smoking, COPD, CAD, Cancer, CVA, ARF, Chemo, Hep., AIDS, mental health diagnosis, sleep apnea, morbid obesity)? @ -None Was patient admitted / discharged? Hospital course, mention meds given and route, prescriptions, significant lab abnormalities, going to OR and other pertinent info. @ -Discharge 37-year-old female presenting to the ED with a chief complaint of vaginal bleeding. Initially seen here 2 days ago with ultrasound concerning for possible miscarriage. She then presented to [facility] secondary to increasing abdominal pain and vaginal bleeding. At time of my evaluation bleeding has largely resolved. Laboratory studies reviewed. CBC does show elevated white blood cell count at 14. Hemoglobin at 11.4. chemistry panel largely unremarkable. hCG quant 2 days ago 7922 down to 3519 today. Laboratory studies and exam consistent with miscarriage. At this time patient hemodynamically stable. Patient discharged home to follow-up with Dr. Villela later today. Discussed strict return precautions with patient who verbalized agreement. Undiagnosed new problem with uncertain prognosis? @ -No Drug Therapy requiring intensive monitoring for toxicity (Heparin, Nitro, Insulin, Cardizem)? @ -No Were any procedures done? @ -No Diagnosis/symptom? @ -Miscarriage Acute, or Chronic, or Acute on Chronic? @ -Acute Uncomplicated (without systemic symptoms) or Complicated (systemic symptoms)? @ -Complicated Side effects of treatment? @ -No Exacerbation, Progression, or Severe Exacerbation? @ -No Poses a threat to life or bodily function? How? (Chest pain, [place], [place], pneumonia, PE, COPD, DKA, ARF, appy, cholecystitis, CVA, Diverticulitis, Homicidal, Suicidal, threat to staff... and all critical care pts) @ -Unlikely - Lab Data Result diagrams: 09/13/23 00:47 09/13/23 00:47 Lab Results 09/13/23 09/13/23 Range/Units 00:47 00:47 WBC 14.0 H (3.8-10.6) k/uL RBC 3.83 (3.80-5.40) m/uL Hgb 11.4 (11.4-16.0) gm/dL Hct 34.2 (34.0-46.0) % MCV 89.4 (80.0-100.0) fL MCH 29.9 (25.0-35.0) pg MCHC 33.4 (31.0-37.0) g/dL RDW 13.8 (11.5-15.5) % Plt Count 375 (150-450) k/uL MPV 7.7 Neutrophils % 83 % Lymphocytes % 13 % Monocytes % 3 % Eosinophils % 1 % Basophils % 0 % Neutrophils # 11.6 H (1.3-7.7) k/uL Lymphocytes # 1.8 (1.0-4.8) k/uL Monocytes # 0.4 (0-1.0) k/uL Eosinophils # 0.1 (0-0.7) k/uL Basophils # 0.0 (0-0.2) k/uL Sodium 136 L (137-145) mmol/L Potassium 3.9 (3.5-5.1) mmol/L Chloride 110 H (98-107) mmol/L Carbon Dioxide 18 L (22-30) mmol/L Anion Gap 8 mmol/L BUN 9 (7-17) mg/dL Creatinine 0.47 L (0.52-1.04) mg/dL Est GFR (CKD-EPI)AfAm >90 (>60 ml/min/1.73 sqM) Est GFR (CKD-EPI)NonAf >90 (>60 ml/min/1.73 sqM) Glucose 116 H (74-99) mg/dL Calcium 8.5 (8.4-10.2) mg/dL Total Bilirubin 0.5 (0.2-1.3) mg/dL AST 15 (14-36) U/L ALT 13 (4-34) U/L Alkaline Phosphatase 76 (38-126) U/L Total Protein 5.7 L (6.3-8.2) g/dL Albumin 3.7 (3.5-5.0) g/dL HCG, Quant 3519.1 mIU/mL Disposition Clinical Impression: Spontaneous Disposition: HOME SELF-CARE Condition: Good Instructions (If sedation given, give patient instructions): Miscarriage (ED) Additional Instructions: Please return to the Emergency Department if symptoms worsen or any other concerns. Please follow-up with Dr. Villela later today. Is patient prescribed a controlled substance at d/c from ED?: No Referrals: None,Stated [Primary Care Provider] - 1-2 days Time of Disposition: 03:25
[2023-09-13 01:06] LABS: Basophils % (A) 0 %; Eosinophils # (A) 0.1 k/uL (0-0.7); Eosinophils % (A) 1 %; HCT 34.2 % (34.0-46.0); HGB 11.4 gm/dL (11.4-16.0); Lymphocytes # (A) 1.8 k/uL (1.0-4.8); Lymphocytes % (A) 13 %; MCH 29.9 pg (25.0-35.0); MCHC 33.4 g/dL (31.0-37.0); MCV 89.4 fL (80.0-100.0); Mean Platelet Volume 7.7; Monocytes # (A) 0.4 k/uL (0-1.0); Monocytes % (A) 3 %; Neutrophils # (A) 11.6 k/uL (1.3-7.7); Neutrophils % (A) 83 %; Platelet Count 375 k/uL (150-450); RBC 3.83 m/uL (3.80-5.40); RDW 13.8 % (11.5-15.5)
[2023-09-13 01:30] LABS: ALT 13 U/L (4-34); AST 15 U/L (14-36); African American GFR (CKD) >90 (>60 ml/min/1.73 sqM); Albumin 3.7 g/dL (3.5-5.0); Alkaline Phosphatase 76 U/L (38-126); Anion Gap 8 mmol/L; Blood Urea Nitrogen 9 mg/dL (7-17); Calcium 8.5 mg/dL (8.4-10.2); Carbon Dioxide 18 mmol/L (22-30); Chloride 110 mmol/L (98-107); Glucose 116 mg/dL (74-99); Non-African American GFR(CKD) >90 (>60 ml/min/1.73 sqM); Potassium 3.9 mmol/L (3.5-5.1); Sodium 136 mmol/L (137-145); Total Bilirubin 0.5 mg/dL (0.2-1.3); Total Protein 5.7 g/dL (6.3-8.2)
[2023-09-13 01:47] LABS: HCG,Quantitative Serum 3519.1 mIU/mL
[2023-09-13] MEDS: SODIUM CHLORIDE 0.9% 1,000 ML IV STA (02:22)
[2023-09-13] MEDS: MORPHINE SULFATE 4 MG/ML SYRINGE IVP STA (04:05)
[2023-09-13 04:29] VITALS: BP 110/74; PULSE 81; RESP 12; TEMP 97.6
== END 2023-09-13 04:16 | disposition home or self-care (01) ==
LOC: EC 00:04
DX: O03.9 Complete or unspecified spontaneous abortion without complication (principal); O99.611 Diseases of the digestive system complicating pregnancy, first trimester; K21.9 Gastro-esophageal reflux disease without esophagitis; O99.331 Smoking (tobacco) complicating pregnancy, first trimester; F17.200 Nicotine dependence, unspecified, uncomplicated; Z79.899 Other long term (current) drug therapy
CPT/HCPCS: 36415; 86900; 86901; 80053; 85025; 86850; 84702; 99285; 96374; 96361; J2270

== ENCOUNTER → 2023-09-19 | Outpatient (CLI) | payer OTHER ==
[2023-09-20 02:07] LABS: HGB 10.3 g/dL (12.0-15.0); MCHC 31.2 g/dL (32.0-37.0); Mean Platelet Volume 9.7 FL (9.5-12.2); NRBC Per 100 WBC 0 X 10*3/uL (0.00-0.01); Platelet Count 515 X 10*3/uL (140-440); RBC 3.55 X 10*6/uL (4.10-5.20); RDW 14.3 % (11.5-14.5); WBC 9.01 X 10*3/uL (4.50-10.00)
== END | disposition home or self-care (01) ==
LOC: LABWHC1 16:10
PROVIDERS: ATTEND Obstetrics & Gynecology
DX: O03.4 Incomplete spontaneous abortion without complication (principal); Z3A.00 Weeks of gestation of pregnancy not specified
CPT/HCPCS: 36415; 84702; 85027

== ENCOUNTER 2024-08-11 12:01 | Outpatient (CLI) | payer OTHER ==
[2024-08-11 13:01] LABS: Basophils # (A) 0.1 k/uL (0-0.2); Basophils % (A) 0 %; Eosinophils # (A) 0.1 k/uL (0-0.7); Eosinophils % (A) 1 %; HCT 33.9 % (34.0-46.0); HGB 10.9 gm/dL (11.4-16.0); Lymphocytes # (A) 1.7 k/uL (1.0-4.8); Lymphocytes % (A) 13 %; MCH 29.6 pg (25.0-35.0); MCHC 32.1 g/dL (31.0-37.0); MCV 92.5 fL (80.0-100.0); Mean Platelet Volume 8.3; Monocytes # (A) 0.6 k/uL (0-1.0); Monocytes % (A) 4 %; Neutrophils # (A) 10.2 k/uL (1.3-7.7); Neutrophils % (A) 79 %; Platelet Count 417 k/uL (150-450); RBC 3.67 m/uL (3.80-5.40); RDW 14.8 % (11.5-15.5); WBC 12.8 k/uL (3.8-10.6)
[2024-08-11 13:17] LABS: INR 0.9 (<1.2); Prothrombin Time 10.1 sec (10.0-12.5)
[2024-08-11 13:37] LABS: Amorphous Sediment,Urine Few /hpf; Appearance,Urine Turbid (Clear); Bacteria,Urine Rare /hpf; Bilirubin,Urine Negative (Negative); Blood,Urine Negative (Negative); Color,Urine Yellow; Glucose,Urine (UA) 4+ (Negative); Ketones,Urine Negative (Negative); Leukocyte Esterase,Urine Negative (Negative); Mucus,Urine Rare /hpf; Nitrite,Urine Negative (Negative); PH, Urine 7.5 (5.0-8.0); Protein,Urine Negative (Negative); Specific Gravity,Urine 1.014 (1.001-1.035); Squamous Epithelial Cell,Urine 16 /hpf (0-4); Urobilinogen,Urine <2.0 mg/dL (<2.0); WBC,Urine 3 /hpf (0-5)
[2024-08-11 13:48] LABS: Creatinine,Urine Random 76.3 mg/dL; Protein/Creatinine Ratio,Urine 0.21
[2024-08-11 13:49] LABS: ALT 15 U/L (4-34); AST 16 U/L (14-36); African American GFR (CKD) >90 (>60 ml/min/1.73 sqM); Blood Urea Nitrogen 6 mg/dL (7-17); LDH 130 U/L (120-246); Non-African American GFR(CKD) >90 (>60 ml/min/1.73 sqM); Uric Acid 2.4 mg/dL (3.7-7.4)
[2024-08-11 13:57] LABS: Glucose,Whole Blood 91 mg/dL (70-110)
== END 2024-08-11 14:15 | disposition home or self-care (01) ==
LOC: FBPOP 12:01
PROVIDERS: ATTEND Obstetrics & Gynecology
DX: O13.9 Gestational [pregnancy-induced] hypertension without significant proteinuria, unspecified trimester (principal); O14.90 Unspecified pre-eclampsia, unspecified trimester; O99.333 Smoking (tobacco) complicating pregnancy, third trimester; Z3A.39 39 weeks gestation of pregnancy; F17.210 Nicotine dependence, cigarettes, uncomplicated
CPT/HCPCS: 36415; 59025; 81001; 82565; 82570; 83615; 84156; 84450; 84460; 84520; 84550; 85025; 85384; 85610; 85730

== ENCOUNTER 2024-10-20 06:00 | Inpatient (IN) | payer OTHER ==
[2024-10-20] MEDS ORDERED: OXYTOCIN 10 UNIT/ML 1 ML VIAL IM PRN (06:26)
[2024-10-20] MEDS ORDERED: miSOPROStoL 200 MCG TAB PO PRN (06:26)
[2024-10-20] MEDS ORDERED: CARBOPROST TROMETHAMINE 250 MCG/ML 1 ML AMP IM PRN (06:26)
[2024-10-20] MEDS ORDERED: METHYLERGONOVINE 0.2 MG/ML 1 ML AMP IM PRN (06:26)
[2024-10-20] MEDS ORDERED: LIDOCAINE 0.5% (PF) 5 MG/ML (50 ML SDV) SQ PRN (06:26)
[2024-10-20] MEDS ORDERED: TERBUTALINE 1 MG/ML VIAL SQ PRN (06:26)
[2024-10-20] MEDS ORDERED: miSOPROStoL 200 MCG TAB RECTAL PRN (06:26)
[2024-10-20] MEDS ORDERED: TRANEXAMIC 1,000 MG/100ML-NACL 1,000 MG in EMPTY BAG 1 BAG IV PRN (06:26)
[2024-10-20] MEDS: LACTATED RINGERS 1,000 ML IV SCH (06:30)
[2024-10-20 06:32] LABS: Glucose,Whole Blood 136 mg/dL (70-110)
[2024-10-20 06:48] LABS: Basophils # (A) 0.04 10*3/uL (0.00-0.10); Basophils % (A) 0.3 %; Eosinophils # (A) 0.25 10*3/uL (0.04-0.35); Eosinophils % (A) 1.7 %; HCT 34.8 % (37.2-46.3); Lymphocytes # (A) 3.22 10*3/uL (0.90-5.00); Lymphocytes % (A) 21.5 %; MCH 30.8 pg (27.0-32.0); MCHC 34.5 g/dL (32.0-37.0); MCV 89.2 fL (80.0-97.0); Mean Platelet Volume 9.4 fL (9.5-12.2); Monocytes # (A) 1.16 10*3/uL (0.20-1.00); Monocytes % (A) 7.7 %; Neutrophils # (A) 10.25 10*3/uL (1.80-7.70); Neutrophils % (A) 68.4 %; Platelet Count 527 10*3/uL (140-440); RDW 14.8 % (11.5-14.5); WBC 14.98 10*3/uL (4.50-10.00)
[2024-10-20] MEDS: OXYTOCIN 30 UNITS/500 ML NS 30 UNIT in SALINE 1 500ML.BAG IV SCH (07:20)
[2024-10-20 12:05] LABS: Glucose,Whole Blood 105 mg/dL (70-110)
--- NOTE | 2024-10-20 12:13 | P.HPOB ---
History of Present Illness H&P Date: 10/20/24 Chief Complaint: induction of labor 38 year old at 39weeks 3 days presents for induction of labor. Her cervix is 2-3/70/-3 and she is not dinora. heart tones category 1. She has GDMA1. BS this morning was 136 and repeat at noon 105. Review of Systems All systems: negative Constitutional: Denies chills, Denies fever Eyes: denies blurred vision, denies pain Ears, nose, mouth and throat: Denies headache, Denies sore throat Cardiovascular: Denies chest pain, Denies shortness of breath Respiratory: Denies cough Gastrointestinal: Denies abdominal pain, Denies diarrhea, Denies nausea, Denies vomiting Genitourinary: Denies dysuria, Denies hematuria Musculoskeletal: Denies myalgias Integumentary: Denies pruritus, Denies rash Neurological: Denies numbness, Denies weakness Psychiatric: Denies anxiety, Denies depression Endocrine: Denies fatigue, Denies weight change Past Medical History Past Medical History: GERD/Reflux, Thyroid Disorder History of Any Multi-Drug Resistant Organisms: None Reported Past Surgical History: No Surgical Hx Reported Past Anesthesia/Blood Transfusion Reactions: No Reported Reaction Past Psychological History: No Psychological Hx Reported Smoking Status: Current every day smoker Past Alcohol Use History: None Reported Additional Past Alcohol Use History / Comment(s): 8-9 cigarettes per day Past Drug Use History: None Reported - Past Family History Mother Family Medical History: No Reported History Medications and Allergies Home Medications Medication Instructions Recorded Confirmed Type Omeprazole 40 mg PO DAILY 03/15/22 10/20/24 History Vit No.179/Iron/Folic 1 each PO DAILY 03/15/22 10/20/24 History [ Tablet] Allergies Allergy/AdvReac Type Severity Reaction Status Date / Time No Known Allergies Allergy Verified 10/20/24 06:22 Exam Osteopathic Statement: *. No significant issues noted on an osteopathic structural exam other than those noted in the History and Physical/Consult. Vital Signs Temp Pulse Resp BP Pulse Ox 10/20/24 06:22 97.3 F L 109 H 16 133/83 96 Intake and Output 10/19/24 10/20/24 10/20/24 22:59 06:59 14:59 Other: Weight 84.368 kg Heart: Regular rate and rhythm Lungs: Clear to auscultation bilaterally Abdomen: Soft, nontender Extremities: Negative Homans sign Results Result Diagrams: 10/20/24 06:26 Abnormal Lab Results - Last 24 Hours (Table) 10/20/24 10/20/24 Range/Units 06:26 06:31 WBC 14.98 H (4.50-10.00) 10*3/uL RBC 3.90 L (4.10-5.20) 10*6/uL Hct 34.8 L (37.2-46.3) % Plt Count 527 H (140-440) 10*3/uL MPV 9.4 L (9.5-12.2) fL Immature Gran # 0.06 H (0.00-0.04) 10*3/uL Neutrophils # 10.25 H (1.80-7.70) 10*3/uL Monocytes # 1.16 H (0.20-1.00) 10*3/uL POC Glucose (mg/dL) 136 H (70-110) mg/dL Assessment and Plan (1) Elective induction of labor planned Current Visit: No Status: Resolved Code(s): OCC1870 - SNOMED Code(s): 405002030 (2) Gestational diabetes Current Visit: Yes Status: Acute Code(s): O24.419 - GESTATIONAL DIABETES MELLITUS IN , UNSP CONTROL SNOMED Code(s): 24543892 Plan: 1. Induction of labor with amniotomy and Pitocin 2. Anticipate normal vaginal delivery
[2024-10-20] MEDS ORDERED: fentaNYL (PF) 50 MCG/ML 5 ML AMP ONE (14:45)
[2024-10-20] MEDS ORDERED: ROPIVACAINE 5 MG/ML 30 ML VIAL ONE (14:45)
[2024-10-20] MEDS ORDERED: SODIUM CHLORIDE 0.9% 250 ML BAG ONE (14:45)
[2024-10-20] MEDS ORDERED: diphenhydrAMINE 50 MG CAP PO PRN (16:56)
[2024-10-20] MEDS ORDERED: SIMETHICONE 80 MG CHEWABLE PO PRN (16:56)
[2024-10-20] MEDS ORDERED: diphenhydrAMINE 25 MG CAP PO PRN (16:56)
[2024-10-20] MEDS ORDERED: HYDROCORTISONE 2.5% RECTAL CREAM 30 GM TUBE RECTAL PRN (16:56)
[2024-10-20] MEDS ORDERED: BENZOCAINE/MENTHOL SPRAY 1 GM/SPRAY AEROSOL TOPICAL PRN (16:56)
[2024-10-20] MEDS ORDERED: diphenhydrAMINE 50 MG/ML 1 ML VIAL IVP PRN ×2 (16:56)
[2024-10-20] MEDS ORDERED: LANOLIN CREAM 1 GM TUBE TOPICAL PRN (16:56)
[2024-10-20] MEDS ORDERED: ZOLPIDEM 5 MG TAB PO PRN (16:56)
[2024-10-20] MEDS ORDERED: OXYTOCIN 30 UNITS/500 ML NS 30 UNIT in SALINE 1 500ML.BAG IV SCH (17:00)
--- NOTE | 2024-10-20 17:05 | P.PROBDLV ---
Vaginal Delivery Note - . Vaginal Delivery Note: 38 year old at 39weeks 3 days presents for induction of labor. Her cervix is 2-3/70/-3 and she is not dinora. heart tones category 1. She has GDMA1. BS this morning was 136 and repeat at noon 105. Pitocin was started amniotomy performed at 8:40 AM, clear fluid noted. Patient progressed slowly throughout the day and when she was uncomfortable at 4 cm she did get an epidural. Cervix was completely dilated at 1629. She pushed, live viable female over intact perineum under epidural anesthesia. Head delivered OA, nuchal cord x 1 easily reduced, anterior shoulder which was the left shoulder delivered gentle downward guidance in Lito position, followed by posterior shoulder and rest of body. Nose and mouth bulb suction, correct them to cut, placed on mother's abdomen. Apgars 9, 9, weight 9 pounds 6.4 ounces. Placenta delivered spontaneously, intact with three-vessel cord at 1647. Vagina, cervix, perineum inspected. No lacerations noted. Estimated blood loss 100 mL. Mother and baby in stable condition.
[2024-10-20] MEDS: SENNOSIDES-DOCUSATE SODIUM 1 EACH TAB PO SCH (19:55)
[2024-10-20] MEDS: IBUPROFEN 800 MG TAB PO SCH (19:56)
[2024-10-20] MEDS: ACETAMINOPHEN TAB 500 MG TAB PO SCH (21:29)
[2024-10-21 06:02] LABS: Basophils # (A) 0.06 10*3/uL (0.00-0.10); Basophils % (A) 0.3 %; Eosinophils % (A) 0.5 %; HCT 31.5 % (37.2-46.3); HGB 10.1 g/dL (12.0-15.0); Lymphocytes % (A) 16.5 %; MCH 29.1 pg (27.0-32.0); MCHC 32.1 g/dL (32.0-37.0); MCV 90.8 fL (80.0-97.0); Mean Platelet Volume 9.1 fL (9.5-12.2); Monocytes # (A) 1.54 10*3/uL (0.20-1.00); Monocytes % (A) 7.5 %; Neutrophils # (A) 15.41 10*3/uL (1.80-7.70); Neutrophils % (A) 74.7 %; Platelet Count 457 10*3/uL (140-440); RBC 3.47 10*6/uL (4.10-5.20); RDW 14.8 % (11.5-14.5); WBC 20.62 10*3/uL (4.50-10.00)
--- NOTE | 2024-10-21 08:28 | P.DS ---
Providers Date of admission: 10/20/24 06:08 Expected date of discharge: 10/21/24 Attending physician: Felipa Villela Primary care physician: Stated None - Discharge Diagnosis(es) (1) Elective induction of labor planned Current Visit: No Status: Resolved (2) Gestational diabetes Current Visit: Yes Status: Resolved (3) Normal vaginal delivery Current Visit: No Status: Acute Hospital Course: Patient presented in active labor. She underwent a normal vaginal delivery. course has been uneventful. She denies nausea, vomiting, chest pain, shortness of breath or calf pain. Patient will be discharged home day #1 in stable condition to follow-up with me in 6 weeks. Plan - Discharge Summary New Discharge Prescriptions: New Ibuprofen [Motrin] 800 mg PO Q8HR #30 tab No Action Omeprazole 40 mg PO DAILY Vit No.179/Iron/Folic [ Tablet] 1 each PO DAILY Discharge Medication List Omeprazole 40 mg PO DAILY 03/15/22 [History] Vit No.179/Iron/Folic [ Tablet] 1 each PO DAILY 03/15/22 [History] Ibuprofen [Motrin] 800 mg PO Q8HR #30 tab 10/21/24 [Rx] Follow up Appointment(s)/Referral(s): Felipa Villela DO [Doctor of Osteopathic Medicine] - 12/02/24 1:15 pm Discharge Disposition: HOME SELF-CARE
[2024-10-21 10:51] VITALS: TEMP 97.9
[2024-10-21 16:46] VITALS: BP 135/82; PULSE 73; RESP 18
== END 2024-10-21 17:26 | disposition home or self-care (01) | DRG 560 ==
LOC: 4FBP 06:08
PROVIDERS: ADMIT Obstetrics & Gynecology; ATTEND Obstetrics & Gynecology
PROC: 10907ZC Drainage of Amniotic Fluid, Therapeutic from Products of Conception, Via Natural or Artificial Opening (ICD-10-PCS; principal; 2024-10-20)
PROC: 3E033VJ Introduction of Other Hormone into Peripheral Vein, Percutaneous Approach (ICD-10-PCS; principal; 2024-10-20)
PROC: 10E0XZZ Delivery of Products of Conception, External Approach (ICD-10-PCS; principal; 2024-10-20)
DX: O24.420 Gestational diabetes mellitus in childbirth, diet controlled (principal); O69.81X0 Labor and delivery complicated by cord around neck, without compression, not applicable or unspecified; O99.334 Smoking (tobacco) complicating childbirth; K21.9 Gastro-esophageal reflux disease without esophagitis; F17.200 Nicotine dependence, unspecified, uncomplicated; Z37.0 Single live birth; Z28.310 Unvaccinated for COVID-19; Z28.21 Immunization not carried out because of patient refusal
CPT/HCPCS: 85025; 86850; 86900; 86901